=== PATIENT | male | born 1990 | race African-American/Black ===

== ENCOUNTER 2019-10-13 19:44 | Emergency (ER) | payer SELFPAY ==
--- NOTE | 2019-10-13 20:42 | ER Document Report ---
ED Medical Screen (RME) - General Chief Complaint: Sore Throat Stated Complaint: THROAT PAIN Time Seen by Provider: 10/13/19 20:37 Mode of Arrival: Ambulatory Information source: Patient Notes: 28-year-old male presents with a sore throat since Friday. Patient does have a large abscess to the right tonsil. Reports it hurts to swallow a little bit. Denies airway problems. Denies fever vomiting diarrhea. Patient speaking in a clear voice, good airway. I have greeted and performed a rapid initial assessment of this patient. A comprehensive ED assessment and evaluation of the patient, analysis of test results and completion of the medical decision making process will be conducted by additional ED providers. - Related Data Allergies/Adverse Reactions: peanut Allergy (Verified 10/13/19 20:37) Physical Exam - Vital signs Vitals: Temp Pulse Resp BP Pulse Ox 98.3 F 77 18 127/79 H 99 10/13/19 20:35 10/13/19 20:35 10/13/19 20:35 10/13/19 20:35 10/13/19 20:35 Course - Vital Signs Vital signs: Temp Pulse Resp BP Pulse Ox 98.3 F 77 18 127/79 H 99 10/13/19 20:35 10/13/19 20:35 10/13/19 20:35 10/13/19 20:35 10/13/19 20:35
[2019-10-13 22:56] LABS: ABSOLUTE EOSINOPHILS # (AUTO) 0.1 10^3/uL (0.0-0.6); ABSOLUTE LYMPHOCYTES (AUTO) 1.5 10^3/uL (0.5-4.7); ABSOLUTE MONOCYTES (AUTO) 0.4 10^3/uL (0.1-1.4); ABSOLUTE NEUT (AUTO) 4.9 10^3/uL (1.7-8.2); BASOPHILS % (AUTO) 0.6 % (0-2); EOSINOPHILS % (AUTO) 0.7 % (0-6); HEMATOCRIT 43.6 % (37.9-51.0); HEMOGLOBIN 14.6 g/dL (13.5-17.0); MEAN CORPUSCULAR HEMOGLOBIN 27.2 pg (27.0-33.4); MEAN CORPUSCULAR HGB CONC 33.5 g/dL (32.0-36.0); MEAN CORPUSCULAR VOLUME 81 fl (80-97); MONOCYTES % (AUTO) 6.1 % (3-13); PLATELET COUNT 278 10^3/uL (150-450); RED BLOOD COUNT 5.39 10^6/uL (4.35-5.55); RED CELL DISTRIBUTION WIDTH 13.3 % (11.5-14.0); SEGMENTED NEUTROPHILS % (AUTO) 70.6 % (42-78); TOTAL CELLS COUNTED % (AUTO) 100 %; WHITE BLOOD COUNT 6.9 10^3/uL (4.0-10.5)
[2019-10-13 23:20] LABS: ALBUMIN 4.8 g/dL (3.5-5.0); ALKALINE PHOSPHATASE 72 U/L (38-126); ANION GAP 10 (5-19); ASPARTATE AMINO TRANSFERASE 34 U/L (17-59); BILIRUBIN,DIRECT 0.3 mg/dL (0.0-0.4); BILIRUBIN,TOTAL 0.5 mg/dL (0.2-1.3); BLOOD UREA NITROGEN 17 mg/dL (7-20); CALCIUM 9.9 mg/dL (8.4-10.2); CARBON DIOXIDE 30 mmol/L (22-30); CHLORIDE 98 mmol/L (98-107); GLUCOSE 98 mg/dL (75-110); POTASSIUM 4.3 mmol/L (3.6-5.0); TOTAL PROTEIN 8.5 g/dL (6.3-8.2)
--- NOTE | 2019-10-14 00:27 | RADIOLOGY REPORT (SQ) ---
EXAM DESCRIPTION: CT SOFT TISSUE NECK WITH CLINICAL HISTORY: 28 years Male; ?peritonsillar abscess; TECHNIQUE: Soft tissue protocol CT of the neck using intravenous contrast.. All CT scans at this facility use dose modulation, iterative reconstruction, and/or weight based dosing when appropriate to reduce radiation dose to as low as reasonably achievable. COMPARISON: None. FINDINGS: Sinuses: Visualized paranasal sinuses and mastoid air cells are clear. No acute soft tissue edema. No retropharyngeal edema. Salivary glands: Within normal limits. Pharynx: Epiglottis is normal. No airway compromise. No suspicious enhancing lesions. Mucosal surfaces are symmetric. Nodes: No cervical adenopathy. Bones: No acute bone findings. Vascular: Within normal limits. Thyroid: Within normal limits. Lung apices are clear. IMPRESSION: 1. No acute findings 2. No peritonsillar abscess or airway compromise.
[2019-10-14] MEDS ORDERED: DEXAMETHASONE SOD PHOS INJ 10 MG/1 ML VIAL IV ONE (01:57)
--- NOTE | 2019-10-14 02:59 | ER Document Report ---
ED ENT - General Chief Complaint: Sore Throat Stated Complaint: THROAT PAIN Time Seen by Provider: 10/13/19 20:37 Mode of Arrival: Ambulatory Notes: 28-year-old male presents to the emergency department with a complaint of swelling in the back of his throat and white patch in the posterior pharynx region. States that he has had problems with swelling in his throat in the past. He denies airway problems at this time or irregular inability to swallow. He denies fever, nausea vomiting, or cough. TRAVEL OUTSIDE OF THE [place] IN LAST 30 DAYS: No - Related Data Allergies/Adverse Reactions: peanut Allergy (Verified 10/13/19 20:37) Past Medical History - General Information source: Patient - Social History Smoking Status: Never Smoker Chew tobacco use (# tins/day): No Drug Abuse: None Family History: Reviewed & Not Pertinent Patient has suicidal ideation: No Patient has homicidal ideation: No Review of Systems - Review of Systems Notes: Constitutional: Negative for fever. HENT: +sore throat. Eyes: Negative for visual changes. Cardiovascular: Negative for chest pain. Respiratory: Negative for shortness of breath. Gastrointestinal: Negative for abdominal pain, vomiting or diarrhea. Genitourinary: Negative for dysuria. Musculoskeletal: Negative for back pain. Skin: Negative for rash. Neurological: Negative for headaches, weakness or numbness. 10 point ROS negative except as marked above and in HPI. Physical Exam - Vital signs Vitals: Temp Pulse Resp BP Pulse Ox 98.3 F 77 18 127/79 H 99 10/13/19 20:35 10/13/19 20:35 10/13/19 20:35 10/13/19 20:35 10/13/19 20:35 - Notes Notes: PHYSICAL EXAMINATION: Physical Exam: General: Well-nourished well-developed in no acute distress HEENT: NC/AT, pupils equal round and reactive to light, MM moist,nares clear, oropharynx clear, airway patent, posterior pharynx reveals enlarged tonsils with white patches noted on the right tonsillar pillar. Neck: supple, no adenopathy, no masses. Good range of motion Lungs: clear, no wheezing, no rales no rhonchi CVS: Regular rate and rhythm no murmur gallop or rub Abdomen: Soft, active, nontender, no masses, no hepatosplenomegaly Ext: No edema, clubbing or cyanosis. Neuro: Alert and responsive, moving all 4 extremities on command, cranial nerves intact, no focal findings Skin: Intact no open lesions, no rash PSYCH: Normal mood, normal affect. Course - Re-evaluation Re-evalutation: 10/14/19 06:40 Patient had lab work, CT soft tissue neck, and the findings were unremarkable for significant findings. Rapid strep was also negative. I have relayed this information to the patient and his , stated that we would use a low dose of steroids and antibiotics were treatment. They are both in agreement with this plan and states they are ready to be discharged. - Vital Signs Vital signs: Temp Pulse Resp BP Pulse Ox 97.9 F 68 16 123/76 100 10/14/19 03:05 10/14/19 03:05 10/14/19 03:05 10/14/19 03:05 10/14/19 03:05 - Laboratory Result Diagrams: 10/13/19 22:26 10/13/19 22:26 Laboratory results interpreted by me: 10/13/19 22:26 Total Protein 8.5 H 10/14/19 06:41 I have reviewed laboratory data and used this information for the treatment decisions regarding the patient. - Diagnostic Test Radiology reviewed: Image reviewed, Reports reviewed - CT soft tissue neck: No acute findings, no suzette-tonsillar abscess seen. Discharge - Discharge Clinical Impression: Acute pharyngitis Qualifiers: Pharyngitis/tonsillitis etiology: other specified organisms Qualified Code(s): J02.8 - Acute pharyngitis due to other specified organisms Condition: Good Disposition: HOME, SELF-CARE Additional Instructions: You are diagnosed with a pharyngitis, please take the medication as prescribed cefdinir, prednisone, please follow-up with your primary care doctor for ENT referral as needed. If you have worsening symptoms or other concerns you may return to the emergency department for further evaluation and treatment. HOME CARE INSTRUCTIONS & INFORMATION: Thank you for choosing us for your medical needs. We hope you're satisfied with the care you received. After you leave, you must properly care for your problem and, at the same time, observe its progress. Any condition can change. Some illnesses can change rapidly over hours or days. If your condition worsens, return to the Emergency Department or see your physician promptly. ABOUT YOUR X-RAYS AND EKG'S: If you had an EKG or X-rays taken, they have been read by the Emergency Physician. The X-rays and EKG's will also be read by a Radiologist or [employer] [facility] within 24 hours. If discrepancies are noted, you will be notified by telephone. Please be certain the ED has a correct telephone number & address where you can be reached. Also, realize that some fractures or abnormalities do not show up on initial X-rays. If your symptoms continue, see your physician. ABOUT YOUR LABORATORY TEST: If you had laboratory tests, the results have been reviewed by the Emergency Physician. Some test results (for example cultures) may not be available for several days. You will be contacted if any test result shows you need additional treatment. Please be certain the ED has a correct telephone number and address where you can be reached. ABOUT YOUR MEDICATIONS: You will receive instructions on how to take your medicine on the prescription label you receive. Additional information may be provided by the Pharmacy. If you have questions afterwards, call the ED for clarification or further instructions. Some prescribed medications may cause drowsiness. Do not perform tasks such as driving a car or operating machinery without consulting your Pharmacist. If you feel you need a refill of pain medication, your condition will need re-evaluation. Please do not call for a refill of any medication. ABOUT YOUR SIGNATURE: Signature of this document acknowledges to followin. Understanding that you received emergency treatment and that you may be released before al medical problems are known or treated. Please be certain the ED has a correct phone number & address where you can be reached. 2. Acknowledgement that you will arrange for follow-up care as recommended. 3. Authorization for the Emergency Physician to provide information to your follow-up Physician in order to maximize your care. AT ANY TIME, IF YOUR SYMPTOMS CHANGE SIGNIFICANTLY OR WORSEN OR YOU DEVELOP NEW SYMPTOMS, RETURN TO THE EMERGENCY DEPARTMENT IMMEDIATELY FOR RE-EVALUATION. OUR GOAL IS TO PROVIDE EXCELLENT MEDICAL CARE! WE HOPE THAT WE HAVE MET YOUR EXPECTATIONS DURING YOUR EMERGENCY DEPARTMENT VISIT AND THAT YOU FEEL YOU HAVE RECEIVED EXCELLENT CARE! Prescriptions: Cefdinir 300 mg PO BID #20 capsule Prednisone [Deltasone 20 mg Tablet] 1 tab PO BID 5 Days #10 tablet Forms: Parent Work Note, Return to Work
[2019-10-14 03:10] VITALS: BP 123/76
== END 2019-10-14 03:13 | disposition home or self-care (01) ==
LOC: ER 19:44
DX: J02.8 Acute pharyngitis due to other specified organisms (principal); Z91.010 Allergy to peanuts
CPT/HCPCS: 99283; 96374; 36415; 87070; 87880; 85025; 80053; 70491; J1100